=== PATIENT | male | born 1960 | race Caucasian/White ===

== ENCOUNTER 2021-06-09 10:43 | Inpatient (IN) | payer OTHER ==
[~2021-06-09] VITALS: Ht 170.2 cm; Wt 84.3 kg
[2021-06-09 11:20] LABS: BASOPHILS ABSOLUTE AUTO 0.04 K/mm3 (0.00-0.23); BASOPHILS PERCENT AUTO 0 % (0-2); EOSINOPHILS PERCENT AUTO 0 % (0-6); Hematocrit 49.9 % (37.0-53.0); Hemoglobin 16.7 g/dL (13.5-17.5); IMMATURE GRAN ABSOLUTE AUTO 0.13 K/mm3 (0.00-0.10); IMMATURE GRAN PERCENT AUTO 1 % (0-1); LYMPHOCYTES ABSOLUTE AUTO 0.99 K/mm3 (0.84-5.20); LYMPHOCYTES PERCENT AUTO 5 % (21-46); MONOCYTES PERCENT AUTO 4 % (4-13); Mean Corpuscular HGB 30.6 pg (26.0-34.0); Mean Corpuscular HGB Conc 33.5 g/dL (31.5-36.5); Mean Corpuscular Volume 91 fL (80-100); Mean Platelet Volume 9.9 fL (9.1-12.4); NEUTROPHILS ABSOLUTE AUTO 17.76 K/mm3 (1.96-9.15); NEUTROPHILS PERCENT AUTO 90 % (41-73); Platelet Count 370 K/mm3 (150-400); RDW Coefficient Variation 12.4 % (11.7-14.2); RDW Standard Deviation 41.6 fL (35.1-46.3); Red Blood Cell Count 5.46 M/mm3 (4.30-5.90); White Blood Cell Count 19.72 K/mm3 (4.00-11.30)
[2021-06-09 11:38] LABS: Troponin I <0.015 ng/mL (0.000-0.040)
[2021-06-09 11:49] LABS: Alanine Aminotransfer (ALT/SGP 35 U/L (12-78); Albumin, Blood 3.3 g/dL (3.4-5.0); Albumin/Globulin Ratio 0.5 (0.8-1.8); Alk Phos 113 U/L (50-136); Anion Gap 23 mmol/L (6-16); Aspartate Aminotrans (AST/SGOT 38 U/L (12-37); Bilirubin, Total 0.6 mg/dL (0.1-1.0); Blood Urea Nitrogen 23 mg/dL (8-24); Bun/Creatinine Ratio 26.4 (12.0-20.0); CO2, Blood 8 mmol/L (21-32); Calcium, Blood 8.9 mg/dL (8.5-10.1); Chloride, Blood 98 mmol/L (98-108); Creatinine, Blood 0.87 mg/dL (0.60-1.20); Globulin, Blood 6.2 g/dL (2.2-4.0); Glomerular Filtration Rate >60 (60-); Glucose, Blood 473 mg/dL (70-99); Potassium, Blood 3.9 mmol/L (3.5-5.5); Sodium, Blood 129 mmol/L (136-145); Total Protein, Blood 9.5 g/dL (6.4-8.2)
[2021-06-09 12:19] LABS: Base Excess Venous -25.1 mmol/L; Bicarbonate Venous 8.6 mmol/L (24.0-30.0); PCO2 Venous 23 mmHg (38-42); PO2 Venous 59 mmHg (38-42); pH Blood Venous 7.02 (7.34-7.37)
--- NOTE | 2021-06-09 16:58 | NUR ---
SHIFT SUMMARY PT ARRIVED TO ICU 16 AT 1405. PT ALERT, ORIENTED, PALE AND WEAK APPEARING. INSULIN GTT INFUSING, BLOOD SUGAR CHECKED. DR. CHAUDHARI AT THE BEDSIDE. IV FLUIDS STARTED. PT STATES HE IS ALREADY FEELING MUCH BETTER THAN WHEN HE CAME IN. POTASSIUM BEING REPLACED, WAITING TO RECHECK LABS UNTIL INFUSION IS COMPLETE. ON 2L/NC WITH RR IN THE 30S. SPO2 LOW 90S. LUNGS CLEAR, DRY COUGH. SINUS TACH WITH RATE IN THE 120S UPON ARRIVAL, 1 TEENS CURRENTLY. BP STABLE. TOLERATING ICE CHIPS AFTER THEY WERE OK'D BY DR. CHAUDHARI. ABD SLIGHTLY DISTENDED, HYPOACTIVE. PT SAYS IT HAS BEEN 4 DAYS SINCE BM, BUT DENIES FEELING CONSTIPATED. STATES HE HASN'T ATE MUCH OVER THE LAST SEVERAL DAYS. VOIDED USING THE URINAL, BUT NEEDED TO STAND TO VOID. CALLED APPROPRIATELY BEFORE STANDING. PT WAS VERY WEAK WITH STANDING, REQUIRED 3 ATTEMPTS TO HOLD HIS WEIGHT, BUT WAS ABLE TO BEAR WEIGHT SAFELY TO VOID AT THE BEDSIDE. PT'S AT THE BEDSIDE CURRENTLY. CONTINUING TO MONITOR.
[2021-06-09 20:29] LABS: Albumin, Blood 2.4 g/dL (3.4-5.0); Anion Gap 12 mmol/L (6-16); Blood Urea Nitrogen 17 mg/dL (8-24); Bun/Creatinine Ratio 24.4 (12.0-20.0); CO2, Blood 13 mmol/L (21-32); Chloride, Blood 111 mmol/L (98-108); Glomerular Filtration Rate >60 (60-); Glucose, Blood 225 mg/dL (70-99); Potassium, Blood 3.3 mmol/L (3.5-5.5); Sodium, Blood 136 mmol/L (136-145)
[2021-06-09 20:51] LABS: Phosphorus, Blood 0.4 mg/dL (2.5-4.9)
[2021-06-10 03:22] LABS: BASOPHILS ABSOLUTE AUTO 0.01 K/mm3 (0.00-0.23); BASOPHILS PERCENT AUTO 0 % (0-2); EOSINOPHILS PERCENT AUTO 0 % (0-6); Hematocrit 35.1 % (37.0-53.0); Hemoglobin 12.6 g/dL (13.5-17.5); IMMATURE GRAN ABSOLUTE AUTO 0.07 K/mm3 (0.00-0.10); IMMATURE GRAN PERCENT AUTO 1 % (0-1); LYMPHOCYTES ABSOLUTE AUTO 0.64 K/mm3 (0.84-5.20); LYMPHOCYTES PERCENT AUTO 5 % (21-46); MONOCYTES ABSOLUTE AUTO 0.44 K/mm3 (0.16-1.47); MONOCYTES PERCENT AUTO 4 % (4-13); Mean Corpuscular HGB 30.9 pg (26.0-34.0); Mean Corpuscular HGB Conc 35.9 g/dL (31.5-36.5); Mean Corpuscular Volume 86 fL (80-100); Mean Platelet Volume 9.2 fL (9.1-12.4); NEUTROPHILS ABSOLUTE AUTO 11.08 K/mm3 (1.96-9.15); NEUTROPHILS PERCENT AUTO 91 % (41-73); Platelet Count 241 K/mm3 (150-400); RDW Coefficient Variation 12.2 % (11.7-14.2); RDW Standard Deviation 38.7 fL (35.1-46.3); Red Blood Cell Count 4.08 M/mm3 (4.30-5.90); White Blood Cell Count 12.24 K/mm3 (4.00-11.30)
[2021-06-10 03:36] LABS: Albumin, Blood 2.1 g/dL (3.4-5.0); Anion Gap 13 mmol/L (6-16); Blood Urea Nitrogen 15 mg/dL (8-24); Bun/Creatinine Ratio 20.9 (12.0-20.0); CO2, Blood 13 mmol/L (21-32); Calcium, Blood 7.6 mg/dL (8.5-10.1); Chloride, Blood 106 mmol/L (98-108); Creatinine, Blood 0.72 mg/dL (0.60-1.20); Glomerular Filtration Rate >60 (60-); Glucose, Blood 356 mg/dL (70-99); Magnesium, Blood 2.2 mg/dL (1.6-2.4); Potassium, Blood 3.4 mmol/L (3.5-5.5); Sodium, Blood 132 mmol/L (136-145)
--- NOTE | 2021-06-10 06:09 | NUR ---
SUMMARY nEURO- PT ALERT AND ORIENTED, USES CALL LIGHT. PERRL 3MM BRISK. PRAKASH BUT WEAK. STANDS AT BED SIDE FOR URINAL. CV-HR NSR-ST. 90-110. SBP WNL. PALPABLE PULSES X 4. RESP- INCREASED O2 NEEDS OVER NIGHT. FROM 2LNC UP TO 6LNC. DEEP BREATHING EXERCISES TAUGHT. PT SELF PRONED AND INCREASED TO 6LNC AT 0615. VERY SOB WITH ANY EXERTION. GI, ICE AND SIPS OK. NO BM, HIGH BS. OFF INSULIN DRIP. D5NS ON HOLD PER . -USES URINAL BUT EXTREMELY TAXING OF RESP. INCREASED RR, AND L/MIN SKIN INTACT. 2PIV AND 1 POWERGLIDE.
[2021-06-10 09:50] LABS: Albumin, Blood 2.1 g/dL (3.4-5.0); Anion Gap 13 mmol/L (6-16); Blood Urea Nitrogen 11 mg/dL (8-24); Bun/Creatinine Ratio 16.3 (12.0-20.0); CO2, Blood 15 mmol/L (21-32); Calcium, Blood 7.7 mg/dL (8.5-10.1); Chloride, Blood 104 mmol/L (98-108); Creatinine, Blood 0.67 mg/dL (0.60-1.20); Glomerular Filtration Rate >60 (60-); Glucose, Blood 312 mg/dL (70-99); Phosphorus, Blood 2.9 mg/dL (2.5-4.9); Potassium, Blood 3.3 mmol/L (3.5-5.5); Sodium, Blood 132 mmol/L (136-145)
--- NOTE | 2021-06-10 13:00 | NUR ---
REASSESSMENT PT HAS SPENT THE MORNING TRYING TO REST IN BETWEEN GLUCOSE STICKS. HE STATES HE STILL FEELS REALLY WEAK BUT ACTUALLY SEEMED STRONGER THAN YESTERDAY WHEN HE STOOD AT THE EOB TO VOID. HE REMAINS ORIENTED. LUNGS ARE CLEAR, DRY COUGH. TACHYPNEIC WITH RATE IN THE 30-LOW 40S. OXYGEN SWITCHED TO HI FLOW NC AND IS CURRENTLY AT 9L AND SPO2 89-92%. DESAT TO 85% WITH STANDING. SINUS TACH WITH RATE IN THE LOW 100S AT REST, 120S WITH ACTIVITY. BP STABLE. DRINKING LOTS OF WATER AND ICE CHIPS. INSULIN GTT RESTARTED THIS MORNING AFTER TALKING WITH DR. CHAUDHARI SINCE CO2 WAS STILL 13 AND GLUCOSE WAS OVER 300. SPOKE [facility] PT'S ON TELEPHONE AND PROVIDED UPDATE.
[2021-06-10 14:27] LABS: Anion Gap 9 mmol/L (6-16); Blood Urea Nitrogen 9 mg/dL (8-24); Bun/Creatinine Ratio 15.1 (12.0-20.0); CO2, Blood 19 mmol/L (21-32); Calcium, Blood 7.7 mg/dL (8.5-10.1); Chloride, Blood 106 mmol/L (98-108); Glomerular Filtration Rate >60 (60-); Glucose, Blood 145 mg/dL (70-99); Phosphorus, Blood 1.1 mg/dL (2.5-4.9); Potassium, Blood 2.6 mmol/L (3.5-5.5); Sodium, Blood 134 mmol/L (136-145)
--- NOTE | 2021-06-10 17:47 | NUR ---
SHIFT SUMMARY PT HAS BEEN RESTING IN BED THROUGHOUT THE DAY. HIS LABS HAVE IMPROVED SO DR. CHAUDHARI ORDERED LONG ACTING INSULIN AND INSULIN GTT WILL BE TURNED OFF SOON. HIS LUNGS ARE CLEAR BUT HE IS STILL REQUIRING 9L/NC. WHEN LYING ON HIS BAKC SPO2 IS 88-91%, WHEN HE LAYS PRONE HE IS 94% BUT HE ONLY LASTS FOR ABOUT AN HOUR BEFORE HE STATES HE CAN'T TOLERATE IT ANY LONGER. BENEFITS OF PRONING EXPLAINED TO PT EXTENSIVELY THROUGHOUT THE DAY. SR, BP STABLE. LOW GRADE TEMP OF 100.1F THIS AFTERNOON. TYLENOL GIVEN FOR BODY ACHES. PT STANDING TO VOID AND WAS VERY WEAK THIS MORNING BUT APPEARED STRONGER WITH STANDING THIS AFTERNOON. PT'S VISITED THIS EVENING AND WAS UPDATED. CONTINUING TO MONITOR.
[2021-06-10 18:16] LABS: Albumin, Blood 1.9 g/dL (3.4-5.0); Anion Gap 10 mmol/L (6-16); Blood Urea Nitrogen 9 mg/dL (8-24); Bun/Creatinine Ratio 16.2 (12.0-20.0); CO2, Blood 17 mmol/L (21-32); Calcium, Blood 7.8 mg/dL (8.5-10.1); Chloride, Blood 108 mmol/L (98-108); Creatinine, Blood 0.56 mg/dL (0.60-1.20); Glomerular Filtration Rate >60 (60-); Glucose, Blood 148 mg/dL (70-99); Potassium, Blood 2.8 mmol/L (3.5-5.5); Sodium, Blood 135 mmol/L (136-145)
--- NOTE | 2021-06-10 18:37 | NUR ---
SPOKE WITH DR. CHAUDHARI ABOUT PT'S RENAL FUNCTION PANEL RESULTS WELL HIS INCREASING OXYGEN NEEDS. RECEIVED ORDERS FOR SOLUMEDORL, REGEN-COV, AIRVO IF NEEDED AND TO RECHECK RFP AFTER K PHOS IS DONE INFUSING TO MONITOR POTASSIUM, SEE ORDERS.
[2021-06-10 22:38] LABS: Albumin, Blood 2.1 g/dL (3.4-5.0); Anion Gap 12 mmol/L (6-16); Blood Urea Nitrogen 9 mg/dL (8-24); Bun/Creatinine Ratio 14.1 (12.0-20.0); CO2, Blood 17 mmol/L (21-32); Calcium, Blood 8.1 mg/dL (8.5-10.1); Chloride, Blood 107 mmol/L (98-108); Creatinine, Blood 0.64 mg/dL (0.60-1.20); Glomerular Filtration Rate >60 (60-); Glucose, Blood 218 mg/dL (70-99); Phosphorus, Blood 3.7 mg/dL (2.5-4.9); Potassium, Blood 3.7 mmol/L (3.5-5.5); Sodium, Blood 136 mmol/L (136-145)
[2021-06-11 05:10] LABS: BASOPHILS ABSOLUTE AUTO 0.01 K/mm3 (0.00-0.23); BASOPHILS PERCENT AUTO 0 % (0-2); EOSINOPHILS PERCENT AUTO 0 % (0-6); Hematocrit 32.1 % (37.0-53.0); Hemoglobin 11.8 g/dL (13.5-17.5); IMMATURE GRAN ABSOLUTE AUTO 0.03 K/mm3 (0.00-0.10); IMMATURE GRAN PERCENT AUTO 1 % (0-1); LYMPHOCYTES ABSOLUTE AUTO 0.69 K/mm3 (0.84-5.20); LYMPHOCYTES PERCENT AUTO 11 % (21-46); MONOCYTES ABSOLUTE AUTO 0.35 K/mm3 (0.16-1.47); MONOCYTES PERCENT AUTO 6 % (4-13); Mean Corpuscular HGB 30.8 pg (26.0-34.0); Mean Corpuscular HGB Conc 36.8 g/dL (31.5-36.5); Mean Corpuscular Volume 84 fL (80-100); Mean Platelet Volume 9.8 fL (9.1-12.4); NEUTROPHILS ABSOLUTE AUTO 5.31 K/mm3 (1.96-9.15); NEUTROPHILS PERCENT AUTO 83 % (41-73); Platelet Count 225 K/mm3 (150-400); RDW Standard Deviation 36.8 fL (35.1-46.3); Red Blood Cell Count 3.83 M/mm3 (4.30-5.90); White Blood Cell Count 6.39 K/mm3 (4.00-11.30)
[2021-06-11 05:30] LABS: Albumin, Blood 1.7 g/dL (3.4-5.0); Anion Gap 14 mmol/L (6-16); Blood Urea Nitrogen 8 mg/dL (8-24); Bun/Creatinine Ratio 14.8 (12.0-20.0); CO2, Blood 16 mmol/L (21-32); Calcium, Blood 7.3 mg/dL (8.5-10.1); Chloride, Blood 106 mmol/L (98-108); Creatinine, Blood 0.54 mg/dL (0.60-1.20); Glomerular Filtration Rate >60 (60-); Glucose, Blood 227 mg/dL (70-99); Magnesium, Blood 2.1 mg/dL (1.6-2.4); Phosphorus, Blood 1.9 mg/dL (2.5-4.9); Potassium, Blood 2.6 mmol/L (3.5-5.5); Sodium, Blood 136 mmol/L (136-145)
--- NOTE | 2021-06-11 10:03 | NUR ---
PT'S JUDY CALLED FOR UPDATE, PHONE UPDATE PROVIDED WITH QUESTIONS ANSWERED TO SATISFACTION.
--- NOTE | 2021-06-11 13:18 | NUR ---
ADMIT: 06/09/21 DISCHARGE: TBD DX: DKA CC: Rochelle ALEXANDER RESIDENCE: HOME - [address] [place] [address] [place]. [id number] NEXT OF KIN/CONTACTS: ITZEL RAMIREZ, SPOUSE- MERI SHIELDS, CHILD - PRIOR TO ADMIT - DME: NONE CCM: NONE HHC/HOSPICE: NONE
--- NOTE | 2021-06-11 13:49 | NUR ---
PT'S UPDATED ON TRANSFER TO PCU.
--- NOTE | 2021-06-11 13:49 | NUR ---
REPORT GIVEN TO ERASTO ANG IN PCU.
[2021-06-11 13:52] LABS: Anion Gap 10 mmol/L (6-16); Blood Urea Nitrogen 8 mg/dL (8-24); Bun/Creatinine Ratio 13.6 (12.0-20.0); CO2, Blood 21 mmol/L (21-32); Calcium, Blood 8.1 mg/dL (8.5-10.1); Chloride, Blood 103 mmol/L (98-108); Creatinine, Blood 0.59 mg/dL (0.60-1.20); Glomerular Filtration Rate >60 (60-); Glucose, Blood 237 mg/dL (70-99); Phosphorus, Blood 1.8 mg/dL (2.5-4.9); Sodium, Blood 134 mmol/L (136-145)
--- NOTE | 2021-06-11 15:14 | NUR ---
ASSUMPTION OF CARE PT ARRIVED VIA WHEELCHAIR FROM ICU. I AGREE WITH THE ASSESSMENT PERFORMED THIS AM. PT DENIES ANY PAIN OR DISCOMFORT AND HAS EXPRESSED NO CONCERNS OR QUESTIONS AT THIS TIME.
--- NOTE | 2021-06-11 18:15 | NUR ---
SHIFT SUMMARY PT ARRIVED FROM ICU AT APPROXIMATLEY 1500. PT ARRIVED TO ROOM BY WHEELCHAIR WITH ACCOMPANYING. PT WAS ORIENTED TO ROOM AND UNIT, C/O PAIN IN HIP REPORTED TREATED PER ORDERS AND REPORTED RELIEF FROM PAIN. PT DENIED DISCOMFORT AND STATED NO FURTHER NEEDS. PT HAS BEEN RESTING IN BED THIS EVENING AFTER PT'S DEPARTED. VSS, NO ACUTE CHANGES NOTED.
[2021-06-11 21:01] LABS: Anion Gap 7 mmol/L (6-16); Blood Urea Nitrogen 11 mg/dL (8-24); Bun/Creatinine Ratio 18.2 (12.0-20.0); CO2, Blood 24 mmol/L (21-32); Calcium, Blood 8.2 mg/dL (8.5-10.1); Chloride, Blood 105 mmol/L (98-108); Creatinine, Blood 0.61 mg/dL (0.60-1.20); Glomerular Filtration Rate >60 (60-); Glucose, Blood 225 mg/dL (70-99); Phosphorus, Blood 1.8 mg/dL (2.5-4.9); Potassium, Blood 3.1 mmol/L (3.5-5.5); Sodium, Blood 136 mmol/L (136-145)
--- NOTE | 2021-06-11 22:14 | NUR ---
UPDATE LABS DRAWN AT 1999, CALL PLACED TO DR. SEAY REGARDING PATIENT'S LAB RESULTS. PATIENT ALSO REQUESTED STOOL SOFTENER DUE TO NO BOWEL MOVEMENT FOR "5 DAYS" AND WOULD LIKE TO START TAKING IT TOMORROW MORNING. ORDERS RECIEVED. SEE UPDATED EMAR.
--- NOTE | 2021-06-11 23:24 | NUR ---
UPDATE PATIENT'S OXYGEN SATURATION MAINTAINING 88-89% ON 15 LITERS. RT CALLED AND PATIENT PLACED ON AIRVO. SETTINGS ARE 45L 80% FIO2 WITH OXYGEN SATURATION NOW AT 95%.
[2021-06-12 04:52] LABS: BASOPHILS ABSOLUTE AUTO 0.01 K/mm3 (0.00-0.23); BASOPHILS PERCENT AUTO 0 % (0-2); EOSINOPHILS PERCENT AUTO 0 % (0-6); Hematocrit 35.1 % (37.0-53.0); Hemoglobin 12.5 g/dL (13.5-17.5); Mean Corpuscular HGB 30.1 pg (26.0-34.0); Mean Corpuscular HGB Conc 35.6 g/dL (31.5-36.5); Mean Corpuscular Volume 85 fL (80-100); Mean Platelet Volume 10.4 fL (9.1-12.4); Platelet Count 284 K/mm3 (150-400); RDW Standard Deviation 37.1 fL (35.1-46.3); Red Blood Cell Count 4.15 M/mm3 (4.30-5.90)
[2021-06-12 04:54] LABS: IMMATURE GRAN ABSOLUTE AUTO 0.07 K/mm3 (0.00-0.10); IMMATURE GRAN PERCENT AUTO 1 % (0-1); LYMPHOCYTES ABSOLUTE AUTO 0.77 K/mm3 (0.84-5.20); LYMPHOCYTES PERCENT AUTO 15 % (21-46); MONOCYTES ABSOLUTE AUTO 0.21 K/mm3 (0.16-1.47); MONOCYTES PERCENT AUTO 4 % (4-13); NEUTROPHILS ABSOLUTE AUTO 4.14 K/mm3 (1.96-9.15); NEUTROPHILS PERCENT AUTO 80 % (41-73)
--- NOTE | 2021-06-12 05:05 | NUR ---
SHIFT SUMMARY A&Ox4 T/O SHIFT. VSS. PATIENT WAS SWITCHED FROM NC TO AIRVO, SETTINGS REMAIN UNCHANGED SINCE APPLICATION. SEE UPDATE. O2 SATURATION HAS REMAINED ABOVE 90%. ENCOURAGED PRONING THIS SHIFT. NO OTHER SIGNIFICANT CHANGES TO PATIENT'S STATUS. WILL CONTINUE TO MONITOR AND REPORT TO DAY SHIFT RN.
[2021-06-12 05:10] LABS: Albumin, Blood 1.9 g/dL (3.4-5.0); Anion Gap 11 mmol/L (6-16); Blood Urea Nitrogen 10 mg/dL (8-24); Bun/Creatinine Ratio 18.2 (12.0-20.0); CO2, Blood 21 mmol/L (21-32); Calcium, Blood 8.1 mg/dL (8.5-10.1); Chloride, Blood 103 mmol/L (98-108); Creatinine, Blood 0.55 mg/dL (0.60-1.20); Glomerular Filtration Rate >60 (60-); Glucose, Blood 282 mg/dL (70-99); Magnesium, Blood 2.3 mg/dL (1.6-2.4); Phosphorus, Blood 3.7 mg/dL (2.5-4.9); Potassium, Blood 3.5 mmol/L (3.5-5.5); Sodium, Blood 135 mmol/L (136-145)
--- NOTE | 2021-06-12 18:06 | NUR ---
SHIFT SUMMARY PT A&O X4. VSS. MONITOR SHOWS SR, HR 70's-80's. SPO2 > 92% ON AIRVO w/ SETTINGS TITRATED FROM 45L, FIO2 80% DOWN TO 40L, FIO2 60% THIS SHIFT. PT TOLERATING WELL. PT UP TO CHAIR FOR MEALS & WHILE VISITING W/ SPOUSE DURING VISITING HRS TODAY. PT ENCOURAGED TO ATTEMPT PRONING TONIGHT.
[2021-06-13 03:55] LABS: BASOPHILS ABSOLUTE AUTO 0.03 K/mm3 (0.00-0.23); BASOPHILS PERCENT AUTO 0 % (0-2); EOSINOPHILS PERCENT AUTO 0 % (0-6); Hematocrit 36.6 % (37.0-53.0); Mean Corpuscular HGB 30.3 pg (26.0-34.0); Mean Corpuscular HGB Conc 35.5 g/dL (31.5-36.5); Mean Corpuscular Volume 85 fL (80-100); Mean Platelet Volume 10.2 fL (9.1-12.4); Platelet Count 343 K/mm3 (150-400); RDW Coefficient Variation 12.2 % (11.7-14.2); RDW Standard Deviation 37.8 fL (35.1-46.3); Red Blood Cell Count 4.29 M/mm3 (4.30-5.90); White Blood Cell Count 8.75 K/mm3 (4.00-11.30)
[2021-06-13 04:00] LABS: IMMATURE GRAN ABSOLUTE AUTO 0.21 K/mm3 (0.00-0.10); IMMATURE GRAN PERCENT AUTO 2 % (0-1); LYMPHOCYTES PERCENT AUTO 14 % (21-46); MONOCYTES ABSOLUTE AUTO 0.34 K/mm3 (0.16-1.47); MONOCYTES PERCENT AUTO 4 % (4-13); NEUTROPHILS ABSOLUTE AUTO 6.97 K/mm3 (1.96-9.15); NEUTROPHILS PERCENT AUTO 80 % (41-73)
[2021-06-13 04:10] LABS: Albumin, Blood 2.2 g/dL (3.4-5.0); Anion Gap 9 mmol/L (6-16); Blood Urea Nitrogen 13 mg/dL (8-24); Bun/Creatinine Ratio 20.6 (12.0-20.0); CO2, Blood 26 mmol/L (21-32); Calcium, Blood 8.3 mg/dL (8.5-10.1); Chloride, Blood 102 mmol/L (98-108); Creatinine, Blood 0.63 mg/dL (0.60-1.20); Glomerular Filtration Rate >60 (60-); Glucose, Blood 232 mg/dL (70-99); Magnesium, Blood 2.2 mg/dL (1.6-2.4); Phosphorus, Blood 3.4 mg/dL (2.5-4.9); Potassium, Blood 3.3 mmol/L (3.5-5.5); Sodium, Blood 137 mmol/L (136-145)
--- NOTE | 2021-06-13 04:45 | NUR ---
SHIFT SUMMARY PATIENT ALERT AND ORIENTED T/O SHIFT. VSS. PATIENT TOLERATING AIRVO WELL, SETTINGS AT 40L 53% FIO2 WITH O2 SATURATIONS ABOVE 95%. MILD SOB WITH EXERTION BUT PATIENT IS ABLE TO RECOVER QUICKLY. PATIENT ENCOURAGED TO PRONE THIS SHIFT BUT IS ABLE TO SLEEP ON LEFT AND RIGHT SIDES EASIER. ABLE TO MAKE NEEDS KNOWN THROUGHOUT SHIFT. NO OTHER SIGNIFICANT CHANGES TO PATIENT'S STATUS. WILL REPORT TO DAY SHIFT RN.
--- NOTE | 2021-06-13 07:55 | NUR ---
CARE ASSUMPTION PATIENT A/OX4. VSS. SPO2 >90% ON AIRVO 40L 40%. TELE SR. PATIENT REPORTS NO PAIN, CHEST PAIN, OR SOB. PATIENT IS INDEPENDENT TO BEDSIDE COMODE. BED IN LOWEST POSITION AND CALL LIGHT WITHIN REACH. WILL CONTINUE TO MONITOR AND PROVIDE CARE.
--- NOTE | 2021-06-13 17:50 | NUR ---
CARE ASSUMPTION PATIENT A/OX4. VSS. SPO2 >90% ON HIGH FLOW NC 8L. PATIENT SAT IN THE CHAIR AT BEDSIDE DURING VISITING HOURS WITH HIS . PATIENT REPORTS NO CHEST PAIN, PAIN, OR SOB. CALL LIGHT WITHIN REACH. NO ACUTE CHANGES. WILL CONTINUE TO MONITOR AND PROVIDE CARE UNTIL HAND OFF WITH NEXT SHIFT.
[2021-06-14 06:05] LABS: Hematocrit 39.5 % (37.0-53.0); Hemoglobin 13.5 g/dL (13.5-17.5); Mean Corpuscular HGB Conc 34.2 g/dL (31.5-36.5); Mean Corpuscular Volume 88 fL (80-100); Mean Platelet Volume 9.6 fL (9.1-12.4); Platelet Count 393 K/mm3 (150-400); RDW Coefficient Variation 12.3 % (11.7-14.2); RDW Standard Deviation 39.4 fL (35.1-46.3); White Blood Cell Count 8.24 K/mm3 (4.00-11.30)
[2021-06-14 06:25] LABS: Albumin, Blood 2.3 g/dL (3.4-5.0); Anion Gap 6 mmol/L (6-16); Blood Urea Nitrogen 15 mg/dL (8-24); Bun/Creatinine Ratio 26.4 (12.0-20.0); CO2, Blood 28 mmol/L (21-32); Calcium, Blood 8.5 mg/dL (8.5-10.1); Chloride, Blood 101 mmol/L (98-108); Creatinine, Blood 0.57 mg/dL (0.60-1.20); Glomerular Filtration Rate >60 (60-); Glucose, Blood 248 mg/dL (70-99); Magnesium, Blood 2.4 mg/dL (1.6-2.4); Phosphorus, Blood 3.6 mg/dL (2.5-4.9); Potassium, Blood 3.9 mmol/L (3.5-5.5); Sodium, Blood 135 mmol/L (136-145)
[2021-06-14 06:29] LABS: BAND PERCENT MAN 1 % (0-8); BASOPHILS PERCENT MAN 0 % (0-2); EOSINOPHILS PERCENT MAN 0 % (0-6); LYMPHOCYTES ABSOLUTE MAN 1.48 K/mm3 (0.84-5.20); LYMPHOCYTES PERCENT MAN 18 % (21-46); MONOCYTES ABSOLUTE MAN 0.41 K/mm3 (0.16-1.47); MONOCYTES PERCENT MAN 5 % (4-13); MYELOCYTE ABSOLUTE MAN 0.16 K/mm3 (0.00-0.00); MYELOCYTE PERCENT MAN 2 % (0-0); NEUTROPHILS ABSOLUTE MAN 6.18 K/mm3 (1.96-9.15); SEG NEUTROPHILS PERCENT MAN 74 % (41-73); TOTAL CELLS COUNTED 100
--- NOTE | 2021-06-14 07:41 | NUR ---
SHIFT SUMMARY PATIENT IS RESTINGIN BED COMFORTABLY. BED IS IN LOW POSITION. CALL LIGHT IS IN REACH. VITALS WERE STABLE DURING THE NIGHT. NO ACUTE CHANGES. PATIENT DID VERY WELL ON 7L NC HE SATRRATED ABOVE 90%. NO COMPLAINTS DRUING THE NIGHT. WAS ABLE TO AMBULATE IN HIS ROOM AND USED HIS URINAL AT THE BEDSIDE. WILL CONTINUE TO MONITOR. REPORT GIVEN TO VALENCIA HARRIS RN.
--- NOTE | 2021-06-14 08:35 | NUR ---
CARE ASSUMPTION PATIENT A/OX4. VSS. TELE SR. SPO2 >90% ON 5L HF. PATIENT REPORTS NO CHEST PAIN, PAIN, OR SOB. PATIENT EDUCATED ON THE [employer] PROGRAM, WHICH IS A LOCAL PROGRAM THROUGH [employer] THAT IS HELPFUL WITH CHRONIC DISEASES. PATIENT INDEPDENT IN ROOM. CALL LIGHT WITHIN REACH.
--- NOTE | 2021-06-14 16:16 | NUR ---
REPORT TO CORDELL RN THIS RN GAVE REPORT TO ELYSSA ANG. AWAITING FOR ROOM TO BE CLEANED AND THEN PATIENT WILL TRANSFER BY WHEELCHAIR UP TO NEW ROOM.
--- NOTE | 2021-06-14 17:06 | NUR ---
Assume care Patient arrived to unit via w/c with at side and personal belongings. 4L O2, self transferred to bed. Denies pain, nausea, vomiting. Settled to room, call light given. Tele placed. Water and extra pillows given per patient's request. Blood sugar taken. Will plan to titrate O2 down. Bed in lowest position. Received report from Tatiana ANDRE-SAV. JORGE ALBERTO.
--- NOTE | 2021-06-14 18:24 | NUR ---
Shift Summary Patient transferred later on the shift to room 309. A/Ox4, pleasant and cooperative. Up to bathroom independently. Denies pain. Sats maintained above 95% on 2L so titrated off O2 as of this moment. No acute changes or concerns since arrival. WCTM.
[2021-06-15 06:19] LABS: Albumin, Blood 2.5 g/dL (3.4-5.0); Anion Gap 6 mmol/L (6-16); Blood Urea Nitrogen 16 mg/dL (8-24); Bun/Creatinine Ratio 26.2 (12.0-20.0); CO2, Blood 30 mmol/L (21-32); Calcium, Blood 8.9 mg/dL (8.5-10.1); Chloride, Blood 100 mmol/L (98-108); Creatinine, Blood 0.61 mg/dL (0.60-1.20); Glomerular Filtration Rate >60 (60-); Glucose, Blood 244 mg/dL (70-99); Magnesium, Blood 2.4 mg/dL (1.6-2.4); Phosphorus, Blood 3.7 mg/dL (2.5-4.9); Potassium, Blood 4.2 mmol/L (3.5-5.5); Sodium, Blood 136 mmol/L (136-145)
--- NOTE | 2021-06-15 06:39 | NUR ---
CHIEF EXECUTIVE SUMMAARY PATIENT HAD A GOOD SHIFT. VITALS WERE STABLE. SATURATION GOOD WITHOUT OXYGEN. NO NEW COMPLAINT LODGED.
--- NOTE | 2021-06-15 11:59 | NUR ---
Per chart review, pt. likely to discharge today. Strong family support at home. No needs identified. Now on room air (no home O2 eval necessary). Pt. has history of non-compliance with visit. I will request [facility] team to schedule hospital F/U with call to patients 24-48 hours post discharge. No further needs at this time. Pt. will be discharing home with Kirti.
[2021-06-15] MEDS ORDERED: Vitamin D1000 UNI1 PO (14:16)
[2021-06-15] MEDS ORDERED: NIFE30ER PO (14:16)
[2021-06-15] MEDS ORDERED: ZINC220 PO (14:16)
[2021-06-15] MEDS ORDERED: METF500 PO (14:17)
[2021-06-15] MEDS ORDERED: XARELTO20 MG PO (14:18)
--- NOTE | 2021-06-15 15:00 | NUR ---
Discharge Summary A/Ox4, pleasant and cooperative with care. Discharging to home. Reviewed d/c papers with patient and at bedside, questions answered to their satisfaction. IV and PG removed by brenton Brower RN. Escorted by [employer] PROGRAM DIRECTOR via w/c. Meds faxed to [facility]. Possessions returned. On RA, sats > 90's even with exertion. Denies pain and SOB.
== END 2021-06-15 14:50 | disposition home or self-care (01) | DRG 177 ==
LOC: ER 10:43 → ICUW 13:15 → MEDS 13:15 → ICUW 13:25 → PCU 06-11 14:37 → MEDS 06-14 16:42
PROVIDERS: Emergency Medicine; Internal Medicine; ADMIT Family Medicine
PROC: 8E0ZXY6 Isolation (ICD-10-PCS; principal; 2021-06-09)
PROC: 3E02340 Introduction of Influenza Vaccine into Muscle, Percutaneous Approach (ICD-10-PCS; 2021-06-10)
PROC: XW033G6 Introduction of REGN-COV2 Monoclonal Antibody into Peripheral Vein, Percutaneous Approach, New Technology Group 6 (ICD-10-PCS; 2021-06-10)
PROC: 5A0935A Assistance with Respiratory Ventilation, Less than 24 Consecutive Hours, High Flow/Velocity Cannula (ICD-10-PCS; 2021-06-11)
DX: U07.1 COVID-19 (principal); E11.10 Type 2 diabetes mellitus with ketoacidosis without coma; J96.01 Acute respiratory failure with hypoxia; J12.82 Pneumonia due to coronavirus disease 2019; E87.6 Hypokalemia; Z23 Encounter for immunization; E83.39 Other disorders of phosphorus metabolism; I10 Essential (primary) hypertension; D72.828 Other elevated white blood cell count; D64.9 Anemia, unspecified
CPT/HCPCS: 36415; 71045; 71260; 80053; 80069; 82010; 82803; 82947; 83036; 83605; 83690; 83735; 83880; 84132; 84145; 84484; 85025; 85379; 86140; 87040; 93005; 93010; 94762; 96365; 96375; 99285-25; A9270; C1751; J0696; J1650; J1815; J2405; J2920; J3480; J7030; J7040; J7042; J7050; J7060; J7120; Q0243; Q9967